=== PATIENT | female | born 1935 | race Caucasian/White ===

== ENCOUNTER 2021-12-16 17:00 | Outpatient (CLI) | payer MEDICARE, BC | END 2021-12-16 17:01 | disposition home or self-care (01) | LOC: SLEEPLAB 17:00 | PROVIDERS: ATTEND Family Medicine | DX: G47.9 Sleep disorder, unspecified (principal); R53.83 Other fatigue | CPT/HCPCS: 95800; 95806 ==

== ENCOUNTER 2022-09-30 11:51 | Outpatient (CLI) | payer MEDICARE, BC ==
[2022-09-30] MEDS ORDERED: Iopamidol 370 76% 100 ML VIAL ONE (12:34)
== END 2022-09-30 11:52 | disposition home or self-care (01) ==
LOC: CT 11:51
PROVIDERS: ATTEND Thoracic Surgery (Cardiothoracic Vascular Surgery)
DX: I73.9 Peripheral vascular disease, unspecified (principal)
CPT/HCPCS: 75635; 82565; Q9967

== ENCOUNTER 2023-01-28 03:58 | Emergency (ER) | payer MEDICARE, BC ==
[2023-01-28 04:22] LABS: #Basophils 0.1 thou/uL (0.0-0.2); #Eosinphils 0.2 thou/uL (0.0-0.7); #Monocytes 0.5 thou/uL (0.11-0.59); #Neutrophils 2.6 thou/uL (1.40-6.50); %Basophils 1.2 % (0.0-1.0); %Eosinophils 4.6 % (0.0-10.0); %Lymphocytes 23.4 % (21.0-51.0); %Monocytes 10.9 % (0.0-10.0); %Neutrophils 59.4 % (42.0-75.0); Hematocrit 42.7 % (36.0-47.0); Hemoglobin 14.2 g/dL (12.0-16.0); Mean Corpuscular HGB CONC 33.3 g/dL (32.0-36.0); Mean Corpuscular Hemoglobin 31.4 pg (27.0-31.0); Mean Corpuscular Volume 94.5 fl (78.0-98.0); Mean Platelet Volume 10.8 fL (7.4-10.4); Platelet Count 173 10x3/uL (130-400); RBC Distribution Width 12.5 % (11.5-14.5); Red Blood Cell (RBC) Count 4.52 mill/uL (4.20-5.40); White Blood Cell (WBC) Count 4.3 10x3/uL (4.8-10.8)
[2023-01-28 04:53] LABS: Troponin I 0.014 ng/mL (< 0.028)
[2023-01-28 04:56] LABS: ALT (SGPT) 18 U/L (8-55); AST (SGOT) 22 U/L (5-34); Albumin 4.4 g/dL (3.4-4.8); Alkaline Phosphatase 55 U/L (40-110); Anion Gap 12 mmol/L (10-20); BUN (Urea Nitrogen) 24 mg/dL (9.8-20.1); Bilirubin, Total 0.4 mg/dL (0.2-1.2); Calc. Creatinine Clearance 0 mL/min (70-130); Carbon Dioxide 29 mmol/L (23-31); Chloride 101 mmol/L (98-107); Estimated GFR 79; Globulin 1.8 g/dL (2.4-3.5); Glucose 88 mg/dL (83-110); Lipase 13 U/L (8-78); Potassium 4.3 mmol/L (3.5-5.1); Protein, Total 6.2 g/dL (5.8-8.1); Sodium 138 mmol/L (136-145)
[2023-01-28] MEDS ORDERED: Aspirin Chewable 81 MG TAB ONE (05:55)
[2023-01-28 07:23] LABS: Troponin I Less than 0.010 ng/mL (< 0.028)
== END 2023-01-28 08:10 | disposition home or self-care (01) ==
LOC: ERS 03:58
DX: R07.9 Chest pain, unspecified (principal)
CPT/HCPCS: 36415; 71045; 80053; 83690; 83880; 84484; 85025; 93005